=== PATIENT | female | born 1935 | race Two or more races ===

== ENCOUNTER 2018-11-16 10:52 | Outpatient (CLI) | payer OTHER ==
[~2018-11-16 10:52] MED LIST: DIOVAN40 MG PO
== END 2018-11-20 11:27 | disposition home or self-care (01) ==
LOC: RAD 10:52
DX: K59.09 Other constipation (principal)

== ENCOUNTER 2019-12-10 08:49 | Day surgery (SDC) | payer OTHER | END 2019-12-10 16:05 | disposition home or self-care (01) | LOC: AMB-ENDOS 08:49 | PROVIDERS: ATTEND Colon & Rectal Surgery | DX: K62.89 Other specified diseases of anus and rectum (principal); K64.2 Third degree hemorrhoids; Z20.828 Contact with and (suspected) exposure to other viral communicable diseases ==